=== PATIENT | female | born 1965 | race Caucasian/White ===

== ENCOUNTER → 2023-05-29 10:46 | Outpatient (CLI) | payer OTHER, SELFPAY ==
--- NOTE | 2023-05-29 10:50 | DI.RAD.S_ITS ---
PROCEDURE: [place] SHOULDER INJECTION MR/CT LT INDICATIONS: PRIMARY OSTEOARTHRIS,LEFT SHOULDER COMPARISON: [facility] [place], [place], XR SHOULDER 2+ VIEWS LEFT, 05/05/2023, 13:55. TECHNIQUE: The indications, alternatives, benefits, risks, and complications of the procedure were explained to the patient. Written informed consent was obtained and placed in the chart. The shoulder was examined fluoroscopically and a site for needle placement chosen for entry into the glenohumeral joint from an anterior approach. The skin was prepped and draped in a sterile fashion, and 1% lidocaine infiltrated from skin down to joint capsule. A spinal needle was inserted into the glenohumeral joint, and a small amount of iodinated contrast media injected to confirm intra-articular placement of the needle tip. This was followed by approximately 12 mL dilute solution of a gadolinium containing MR contrast agent. The needle was removed and a dressing was applied. The patient was given postprocedural instructions and sent to the MR suite for MR imaging. FINDINGS: A single fluoroscopic spot image demonstrates intra-articular location of injected iodinated contrast. IMPRESSION: Successful fluoroscopically guided administration of dilute Gadolinium solution into the shoulder joint for MR arthrogram. Dictated by: Ana Donaldson M.D. on 05/29/2023 at 11:41 Approved by: Ana Donaldson M.D. on 05/29/2023 at 11:41
--- NOTE | 2023-05-29 10:50 | DI.MRI.S_ITS ---
PROCEDURE: MR SHOULDER LT W CON INDICATIONS: PRIMARY OSTEOARTHRIS,LEFT SHOULDER TECHNIQUE: After the administration of 12 mL of dilute intra-articular Gadolinium contrast, oblique coronal T1 and T2 spin echo with fat saturation, oblique sagittal T1 spin echo with and without fat saturation, oblique sagittal T2 fast spin echo with fat saturation, axial T1 spin echo with fat saturation through the shoulder. COMPARISON: [facility] [place], CR, XR SHOULDER 2+ VIEWS LEFT, 05/10/2019, 16:33. [facility] [place], [place], XR SHOULDER 2+ VIEWS LEFT, 05/05/2023, 13:55. FINDINGS: Image quality: Excellent. Rotator cuff: Postsurgical changes are noted from prior rotator cuff tendon repair. There is suggestion of full-thickness rupture involving anterior fibers of distal supraspinatus approximately 2.5 cm from its insertion on humeral head with up to 8 mm medial retraction of torn tendon fibers and contrast extravasating into subacromial subdeltoid bursa. Distal infraspinatus and subscapularis tendons are grossly intact. The supraspinatus, infraspinatus, and subscapularis tendons appear intact throughout. Mild supraspinatus muscle atrophy is seen on sagittal images. Bones and bursae: Postsurgical changes are noted involving medial and lateral aspect of humeral head with susceptibility artifacts. No bone marrow contusions or fractures. Postsurgical widening of acromioclavicular joint is seen. The acromion demonstrates conventional anatomy, without an os acromiale. Capsule and soft tissues: The labrum and glenohumeral ligaments appear intact. There is proximal long head of biceps tenodesis with intact biceps tendon to the level of proximal humeral shaft at the level of tenodesis. The rotator interval appears normal, without fibrosis. The coracohumeral ligament is of normal thickness. No intra-articular bodies. IMPRESSION: 1. Postsurgical changes from prior rotator cuff tendon repair and biceps tenodesis. No gross marrow edema. No acute fracture or dislocation. Expected postsurgical widening of acromioclavicular joint. 2. Full-thickness rupture involving anterior fibers of supraspinatus approximately 2.5 cm from its insertion on the humeral head with up to 8 mm medial retraction of torn tendon fibers and contrast extravasation into subacromial subdeltoid bursa. Distal infraspinatus and subscapularis tendons are intact. Mild supraspinatus muscle atrophy is seen. 3. No gross intra-articular loose bodies. 4. Proximal long head of biceps tendon is intact to the level of tenodesis. 5. No evidence of focal labral tear. Dictated by: Luiz Toledo M.D. on 05/29/2023 at 16:25 Approved by: Luiz Toledo M.D. on 05/29/2023 at 19:33
[2023-05-29] MEDS: LIDOCAINE 1% 20 ML INJ (12:00)
[2023-05-29] MEDS: SODIUM CHLORIDE 0.9 % 20 ML VIAL IV (12:01)
== END ==
PROVIDERS: Family Provider Internal Medicine Geriatric Medicine; PCP Internal Medicine Geriatric Medicine; Referring Provider Orthopaedic Surgery; Visit Provider Orthopaedic Surgery
DX: M75.122 Complete rotator cuff tear or rupture of left shoulder, not specified as traumatic (principal); M19.012 Primary osteoarthritis, left shoulder
CPT/HCPCS: 23350; 73222